=== PATIENT | male | born 1945 | race Caucasian/White ===

== ENCOUNTER 2017-10-26 14:47 | Emergency (ER) | payer MEDICARE, BC ==
[2017-10-26 15:13] VITALS: BP 103/65
--- NOTE | 2017-10-26 15:22 | UC ---
Skin Complaint HPI - HPI Summary HPI Summary: 72 yo male presents with tick bite to right upper thigh. He tells me that this morning he noticed a tick on the outside of his right thigh - was able to pull it off. Thinks he got it yesterday as he was outside a lot and didn't notice it there yesterday. Denies fever, chills, joint pain. - History of Current Complaint Chief Complaint: UCSkin Time Seen by Provider: 10/26/17 15:16 Stated Complaint: TICK BITE Hx Obtained From: Patient Onset/Duration: Sudden Onset Current Severity: None Pain Intensity: 0 - Allergy/Home Medications Allergies/Adverse Reactions: Allergies Allergy/AdvReac Type Severity Reaction Status Date / Time No Known Allergies Allergy Verified 10/26/17 15:13 Home Medications: Home Medications FLUoxetine CAP* [Prozac CAP*] 10 mg PO DAILY 10/26/17 [History Confirmed ] Review of Systems Constitutional: Negative Skin: Other - tick bite right thigh Respiratory: Negative Cardiovascular: Negative Neurovascular: Negative Neurological: Negative Psychological: Negative All Other Systems Reviewed And Are Negative: Yes PMH/Surg Hx/FS Hx/Imm Hx Psychological History: Anxiety - Surgical History Surgical History: Yes Surgery Procedure, Year, and Place: tonsilectomy - Family History Known Family History: Positive: None - Social History Occupation: Retired Lives: With Family Alcohol Use: Weekly Alcohol Amount: 3-4 drinks daily Substance Use Type: None Smoking Status (MU): Never Smoked Tobacco Have You Smoked in the Last Year: No Physical Exam - Summary Physical Exam Summary: GENERAL: NAD. WDWN. No pain distress. SKIN: Right lateral thigh: there is a 4mm diameter of mild erythema with central 1mm area of superficial skin loss. No streaking, bleeding, or drainage. NECK: Supple. Nontender. No lymphadenopathy. CHEST: No accessory muscle use. Breathing comfortably and in no distress. CV: RRR. Without m/r/g. NEURO: Alert. CN II-XII grossly intact. PSYCH: Age appropriate behavior. Triage Information Reviewed: Yes Vital Signs: Initial Vital Signs Temp 97.3 F 10/26/17 15:09 Pulse 75 10/26/17 15:09 Resp 20 10/26/17 15:09 BP 103/65 10/26/17 15:09 Pulse Ox 97 06/24/18 15:09 Course/Dx - Course Course Of Treatment: Has tick with him at visit and does not appear engorged. Tick bite on pt <24 hours - no treatment at this time. - Diagnoses Provider Diagnoses: Tick bite right thigh Discharge - Sign-Out/Discharge Documenting (check all that apply): Discharge/Admit/Transfer - Discharge Plan Condition: Stable Disposition: HOME Patient Education Materials: Lyme Disease (ED), Tick Bite (ED) Referrals: Timoteo Tobar MD [Primary Care Provider] - Additional Instructions: If you develop a fever, shortness of breath, chest pain, new or worsening symptoms - please call your PCP or go to the ED. You have been bitten by a tick. Once the tick is removed, these "bites" usually cause no problems. Tick fever, tick paralysis, Millry Spotted fever, and Lyme disease are uncommon -- but you should mention this tick bite to your doctor if you develop unusual symptoms in the next several weeks. If you develop any of the following, please see your physician promptly: (1) Fever, chills, or generalized malaise associated with a headache. (2) A red round area at the site of the bite (or elsewhere) (3) Joint pain, joint swelling or generalized weakness. (4) Redness, swelling, or drainage at the site of the bite. - Billing Disposition and Condition Condition: STABLE Disposition: Home
== END 2017-10-26 15:30 | disposition home or self-care (01) ==
LOC: UCEAST 14:47
DX: S70.361A Insect bite (nonvenomous), right thigh, initial encounter (principal); W57.XXXA Bitten or stung by nonvenomous insect and other nonvenomous arthropods, initial encounter; Y92.9 Unspecified place or not applicable
CPT/HCPCS: 99201; G0463

== ENCOUNTER 2019-01-06 12:24 | Emergency (ER) | payer MEDICARE, BC ==
--- OUTSIDE RECORDS SUMMARY | 2019-01-06 12:44 | XMS REPORT | Continuity of Care Document ---
:1945 External Reference #:[id number] Author Name Yoni Lopez M.D. Address [address] [place] [address] Care Team Providers Name Role Phone Amadou JOHNSON, Timoteo Fisher - Card Cutter Helper Care Team Information Administrative Technician [phone] Problems Active Problems Provider Date Nuclear senile cataract Yoni Lopez M.D. Onset: 05/27/2016 Bilateral age-related nonexudative macular Yoni Lopez M.D. Onset: 2016 degeneration Presbyopia Hunter Noriega O.D. Onset: 07/13/2013 Regular astigmatism Hunter Noriega O.D. Onset: 07/13/2013 Myopia Hunter Noriega O.D. Onset: 07/13/2013 Incipient senile cataract Hunter Noriega O.D. Onset: 07/13/2013 Nonexudative age-related macular degeneration Hunter Noriega O.D. Onset: 03/2014 Social History Type Date Description Comments Sex Unknown ETOH Use Occasionally consumes alcohol Tobacco Use Start: Unknown Patient has never smoked Smoking Status Reviewed: 01/01/19 Patient has never smoked Allergies, Adverse Reactions, Alerts Active Allergies Reaction Severity Comments Date NKDA 07/12/2013 Seasonal 07/13/2013 Medications Active Medications SIG Qnty Indications Ordering Provider Date Ocuvite Eye + Multi Unknown Tablets Alvesco Unknown 160mcg/Act Aerosol Immunizations Description No Information Available Vital Signs Date Vital Result Comment 07/02/2018 11:03am Intraocular Pressure Right Eye 18 mmHg Intraocular Pressure Left Eye 18 mmHg 06/02/2017 9:45am Intraocular Pressure Right Eye 17 mmHg Intraocular Pressure Left Eye 17 mmHg Results Description No Information Available Procedures Date Code Description Status 01/01/2019 91686 Oct Retina Completed 01/01/2019 99953 Eye Exam Est Intermediate Completed Medical Devices Description No Information Available Encounters Description No Information Available Assessments Date Code Description Provider 01/01/2019 H35.3132 Nonexudative age-related macular Yoni Lopez M.D. degeneration, bilateral, in Plan of Treatment 01/01/2019 - Yoni Lopez M.D.H35.3132 Nonexudative age-related macular degeneration, bilateral, inFollow up:6 mos full Functional Status Description No Information Available Mental Status Description No Information Available Referrals Description No Information Available
--- OUTSIDE RECORDS SUMMARY | 2019-01-06 12:44 | XMS REPORT | Continuity of Care Document ---
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 Problems Active Problems Provider Date Moderate persistent asthma Janeen Alcantar NP Onset: 05/22/2018 Chronic allergic conjunctivitis FAUSTINO Queen Onset: 2016 Allergic rhinitis FAUSTINO Queen Onset: 05/15/2016 Allergic rhinitis due to pollen FAUSTINO Queen Onset: 2016 Moderate persistent asthma Capo Alvares MD Onset: 04/10/2016 Social History Type Date Description Comments Sex Unknown Tobacco Use Start: Unknown Patient has never smoked Smoking Status Reviewed: 11/12/17 Patient has never smoked Allergies, Adverse Reactions, Alerts Description No Known Drug Allergies Medications Active Medications SIG Qnty Indications Ordering Provider Date Cetirizine HCL take one tablet by 30tabs J30.1 Janeen Alcantar NP 2016 mouth daily as 10mg Tablets needed. Alvesco 2 puffs twice a 12.2gm J45.40 Janeen Alcantar NP 06/19/2016 day. use with 160mcg/Act Aerosol spacer. rinse mouth after use. Aerochamber Plus Use aerochamber as 1units J45.40 Capo Streeter 2016 directed with bertha Alvares MD [facility] inhalers. Proair HFA 2 puffs every 4 as 8.500gm J45.40 Janeen Alcantar NP 04/10/2016 needed 108(90Base) mcg/Act Aerosol Fluoxetine HCL Unknown 20mg Capsules Flonase Allergy 2 puffs each 9.900ml Janeen Alcantar NP Relief nostril every day 50mcg/Act Suspension Immunizations Description No Information Available Vital Signs Date Vital Result Comment 01/06/2019 11:12am BP Systolic 127 mmHg BP Diastolic 65 mmHg Height 73 inches 6'1" Weight 180.00 lb BMI (Body Mass Index) 23.7 kg/m2 Heart Rate 56 /min Respiratory Rate 16 /min O2 % BldC Oximetry 98 % 05/22/2018 10:34am BP Systolic 126 mmHg BP Diastolic 62 mmHg Height 73 inches 6'1" Weight 181.00 lb BMI (Body Mass Index) 23.9 kg/m2 Heart Rate 79 /min Respiratory Rate 18 /min Body Temperature 97.2 F O2 % BldC Oximetry 94 % Results Description No Information Available Procedures Description No Information Available Medical Devices Description No Information Available Encounters Description No Information Available Assessments Description No Information Available Plan of Treatment No Information Available Functional Status Description No Information Available Mental Status Description No Information Available Referrals Description No Information Available
--- OUTSIDE RECORDS SUMMARY | 2019-01-06 12:44 | XMS REPORT | Continuity of Care Document ---
:1945 External Reference #:[id number] Author Name SANDY Hurt Address [address] [place] [address] Care Team Providers Name Role Phone Timoteo Tobar Family Medicine Care Team Information Network Diagnostic Support Specialist [phone] Problems Active Problems Provider Date Benign prostatic hypertrophy without outflow Timoteo Tobar M.D. Onset: obstruction FH: Diabetes mellitus Timoteo Tobar M.D. Onset: 01/27/2006 Arthropathy Timoteo Tobar M.D. Onset: 01/27/2006 Anxiety state Timoteo Tobar M.D. Onset: 01/27/2006 Dysthymia Timoteo Tobar M.D. Onset: 01/27/2006 Insomnia Timoteo Tobar M.D. Onset: 02/19/2007 Mild persistent asthma Timoteo Tobar M.D. Onset: 02/02/2018 Infection of external ear Timoteo Tobar M.D. Onset: 02/02/2018 Neuralgia Timoteo Tobar M.D. Onset: 07/29/2013 Sciatica Timoteo Tobar M.D. Onset: 07/29/2013 Bite of nonvenomous arthropod Timoteo Tobar M.D. Onset: 10/13/2012 Hyperlipidemia Timoteo Tobar M.D. Onset: 10/13/2012 Diarrhea Timoteo Tobar M.D. Onset: 05/12/2012 Eruption Timoteo Tobar M.D. Onset: 05/12/2012 Allergic rhinitis Timoteo Tobar M.D. Onset: 06/21/2010 Social History Type Date Description Comments Sex Unknown Tobacco Use Start: Unknown Nonsmoker Smoking Status Reviewed: 12/28/18 Nonsmoker ETOH Use Occasional Tobacco Use Start: Unknown Patient has never smoked Allergies, Adverse Reactions, Alerts Description No Known Drug Allergies Medications Active Medications SIG Qnty Indications Ordering Date Provider Alvesco 2 Puffs bid Timoteo Tobar, 02/02/2018 80mcg/Act M.D. Aerosol Ciprofloxacin HCL 4-5 drops affected 5units H62.43 Timoteo Tobar, 2017 0.3% ear every 12 hours M.D. Solution for the next 5 days in the left ear. Viagra take 1/2 to 1 6tabs Timoteo Tobar, 11/29/2008 50mg Tablets tablet by mouth 1 M.D. hour prior to intercourse Fluoxetine HCL take 1 to 2 120caps Timoteo Tobar, 11/25/2008 20mg capsules every M.D. Capsules morning Zovirax apply qid-5times 15gm Fabby 01/20/2004 5% Ointment per day Rigo Plascencia Imiquimod apply to warts on Unknown 5% Cream hand 3 times per week before bedtime, wash off in the morning Immunizations CPT Code Status Date Vaccine Lot # [id number] Given 02/02/2018 High-Dose, Influenza Virus Vacccine-fluzone 65 and [id number] older [id number] Given 06/26/2015 Tdap Tetanus, W Pertussis [id number] Given 06/26/2015 Pneumococcal Conjugate Vacc-13 [id number] 09333 Given 02/04/2014 Zostivax [id number] 83139 Given 02/19/2007 DO Not Use Split Influenza Virus Vaccine [id number] 72787 Given 02/26/2002 DO Not Use Split Influenza Virus Vaccine Vital Signs Date Vital Result Comment 12/28/2018 10:31am BP Systolic 128 mmHg BP Diastolic 70 mmHg Heart Rate 66 /min Body Temperature 97.3 F Height 71.75 inches 5'11.75" measured 06/26/15 Weight 180.00 lb BMI (Body Mass Index) 24.6 kg/m2 03/12/2018 1:58pm BP Systolic 120 mmHg BP Diastolic 70 mmHg Heart Rate 60 /min Body Temperature 98.4 F Height 71.75 inches 5'11.75" measured 06/26/15 Weight 186.00 lb BMI (Body Mass Index) 25.4 kg/m2 Results Description No Information Available Procedures Date Code Description Status 04/24/2014 61617519 Colonoscopy Completed 04/08/2014 51366430 Colonoscopy Completed 12/23/2008 07665237 Colonoscopy Completed Medical Devices Description No Information Available Encounters Description No Information Available Assessments Date Code Description Provider 12/28/2018 H60.312 Diffuse otitis externa, left ear SANDY Hurt 12/28/2018 H61.23 Impacted cerumen, bilateral SANDY Hurt Plan of Treatment Future Appointment(s):03/02/2019 12:00 pm - Timoteo Tobar M.D. at [facility]/28/2018 - Jeane Can, PAH60.312 Diffuse otitis externa, left earComments:Use rubbing alcohol in both ears today- saturate a cotton ball with rubbing alchol and let drip in to the ear canal to help dry out the ear canal. Start antibiotic ear drops in both ears 4 drops twice a day for the next 5 days. Call if symptoms worsen or don't improve or if you experience decrease in hearing, pain in the ears.H61.23 Impacted cerumen, bilateralComments:irrigated today. Call with reoccurence of symptoms.AllComments:PCMHMedication Management Patient Understands medications he's taking? Yes Are there Barriers to Adherence? No Has the patient been asked about herbal supplements and therapies, and OTC meds? Yes Care Plan1. Patient has been queried about patient's goals/preferences and functional/lifestyle goals at relevant visits. Yes If relevant, describe: N/A2. Treatment goals as explained to the patient: above3. Are there barriers to meeting treatment goals? No If Yes , please describe:4. Self-Management goals as described to the patient: Yes As always, we strongly encourage a healthy diet and making physical activity a part of your every day life. If you have questions about how or where to start, please contact the office. Functional Status Description No Information Available Mental Status Description No Information Available Referrals Description No Information Available
--- NOTE | 2019-01-06 13:10 | ED ---
Palpitations / Dysrhythmia - HPI Summary HPI Summary: The patient is a 73 y/o M presenting to [facility] with a chief complaint of dysrhythmia today while at an appointment with his electrostatic painter. He reports that he was getting a routine check-up for asthma when he started to fell unwell with chest tightness following a second nebulizer treatment. Following the tightness, he felt fast palpitations, which he notes he has been feeling throughout this past summer, but he believes it may be secondary to coffee drinking although he has also had episodes of the tightness radiating into the neck and jaw. He also notes that he can hear an inconsistent heartbeat. The GROUTER HELPER in the office at the electrostatic painter took the patients pulse and found that it was irregular. He denies any SOB, pain or swelling in the legs. He has not been on any recent long trips, and he doesnt have hx of blood clot. No previous stress test. PMHx: asthma (controlled with meds). Nonsmoker, weekly EtOH, no substance use. Medications reviewed. Allergies noted. - History of Current Complaint Chief Complaint: EDDysrhythmPalp Time Seen by Provider: 01/06/19 12:53 Hx Obtained From: Patient, Family/Senior Lead Project Manager - Onset/Duration: Sudden Onset, Still Present Severity Initially: Moderate Severity Currently: Moderate Character: Fast, Irregular Aggravating: Nothing Alleviating: Nothing - Allergy/Home Medications Allergies/Adverse Reactions: Allergies Allergy/AdvReac Type Severity Reaction Status Date / Time No Known Allergies Allergy Verified 10/26/17 15:13 Home Medications: Home Medications Acyclovir OINT 5%(NF) [Zovirax Oint 5%(NF)] 1 applic TOPICAL .4-5 TIMES DAILY [History Confirmed 01/06/19] Albuterol HFA INHALER* [Ventolin HFA Inhaler*] 1 - 2 puff INH Q4H PRN 01/06/19 [ History Confirmed 01/06/19] Cetirizine* [ZyrTEC 10 MG TAB*] 10 mg PO BEDTIME 01/06/19 [History Confirmed 08/21] Ciclesonide 80 MCG MDI (NF) [Alvesco 80 MDI (NF)] 2 puff INH BID 01/06/19 [ History Confirmed 01/06/19] Imiquimod 1 applic TOPICAL .3X/WEEK 01/06/19 [History Confirmed 01/06/19] PMH/Surg Hx/FS Hx/Imm Hx Endocrine/Hematology History: Denies: Hx Diabetes Cardiovascular History: Denies: Hx Hypertension, Hx Pacemaker/ICD, Other Cardiovascular Problems/ Disorders Respiratory History: Reports: Hx Asthma - CHECKING INTO THIS, Other Respiratory Problems/Disorders - 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, POSSIBLE DUST INHALATION Denies: Hx Chronic Obstructive Pulmonary Disease (COPD) Sensory History: Reports: Hx Contacts or Glasses Opthamlomology History: Reports: Hx Contacts or Glasses - Surgical History Surgical History: Yes Surgery Procedure, Year, and Place: tonsilectomy Infectious Disease History: No Infectious Disease History: Denies: Hx Clostridium Difficile, Hx Hepatitis, Hx Human Immunodeficiency Virus (HIV), Hx of Known/Suspected MRSA, Hx Shingles, Hx Tuberculosis, Hx Known/ Suspected VRE, Hx Known/Suspected VRSA, History Other Infectious Disease, Traveled Outside the [place] in Last 30 Days - Family History Known Family History: Negative: Cardiac Disease, Hypertension, Diabetes - Social History Alcohol Use: Weekly Alcohol Amount: 3-4 drinks daily Hx Substance Use: No Substance Use Type: Reports: None Hx Tobacco Use: No Smoking Status (MU): Never Smoked Tobacco Have You Smoked in the Last Year: No Review of Systems Positive: Palpitations, Other - chest tightness radiating as pressure into neck and jaw Negative: Shortness Of Breath Negative: Myalgia - in calves, Edema - in lower extremities All Other Systems Reviewed And Are Negative: Yes Physical Exam - Summary Physical Exam Summary: Constitutional: Well-developed, Well-nourished, Alert. (-) Distressed Skin: Warm, Dry HENT: Normocephalic; Atraumatic Eyes: Conjunctiva normal Neck: Musculoskeletal ROM normal neck. (-) JVD, (-) Stridor, (-) Tracheal deviation Cardio: Rhythm regular, rate normal, Heart sounds normal; Intact distal pulses; The pedal pulses are 2+ and symmetric. Radial pulses are 2+ and symmetric. (-) Murmur Pulmonary/Chest wall: Effort normal. (-) Respiratory distress, (-) Wheezes, (-) Rales Abd: Soft, (-) tenderness, (-) Distension, (-) Guarding, (-) Rebound Musculoskeletal: (-) Edema Lymph: (-) Cervical adenopathy Neuro: Alert, Oriented x3 Psych: Mood and affect Normal Triage Information Reviewed: Yes Vital Signs On Initial Exam: Initial Vitals Temp Pulse Resp BP Pulse Ox 97.8 F 71 20 157/68 98 01/06/19 12:35 01/06/19 12:35 01/06/19 12:35 01/06/19 12:35 01/06/19 12:35 Vital Signs Reviewed: Yes Diagnostics - Vital Signs Vital Signs Temp Pulse Resp BP Pulse Ox 01/06/19 12:35 97.8 F 71 20 157/68 98 - Laboratory Result Diagrams: 01/06/19 13:17 01/06/19 13:17 Lab Statement: Any lab studies that have been ordered have been reviewed, and results considered in the medical decision making process. - EKG 1228 Cardiac Rate: NL - 87 bpm EKG Rhythm: Sinus Rhythm Summary of EKG Findings: Multiple PVCs. No STEMI. Re-Evaluation - Re-Evaluation First Eval Re-Evaluation Time: 15:35 Comment: We discussed results and discharge plan. Course/Dx - Course Course Of Treatment: He was sent in from the electrostatic painter office to the [facility] P saw an arrhythmia on his EKG. Upon arrival here, patient had multiple PVCs but no other and rowdy. Patient had blood performed which is grossly unremarkable. Patient did state he isn't having worsening chest pain but has a hard score of 3. Patient had an outpatient stress test set up. Patient is given cardiology follow-up. Patient had no emergent need for admission. - Diagnoses Provider Diagnoses: Chest pain, Frequent PVCs Discharge ED - Sign-Out/Discharge Documenting (check all that apply): Patient Departure - Patietn will be discharged home. Patient Received Moderate/Deep Sedation with Procedure: No - Discharge Plan Condition: Stable Disposition: HOME Patient Education Materials: Chest Pain (ED) Referrals: Timoteo Tobar MD [Primary Care Provider] - 2 Days Additional Instructions: You will receive a call to schedule your outpatient stress test. Return to the emergency department for any new or worsening symptoms. - Billing Disposition and Condition Condition: STABLE Disposition: Home - Attestation Statements Document Initiated by Scribe: Yes Documenting Scribe: Cecilia Knight Provider For Whom Scribe is Documenting (Include Credential): Dr. Vinny Zurita MD Scribe Attestation: I, Cecilia Knight, scribed for Dr. Vinny Zurita MD on 01/08/19 at 1133. Scribe Documentation Reviewed: Yes Provider Attestation: The documentation as recorded by the scribe, Cecilia Knight accurately reflects the service I personally performed and the decisions made by me, Dr. Vinny Zurita MD Status of Scribe Document: Viewed
[2019-01-06 13:32] LABS: ABS Eosinophils 0.2 10^3/ul (0-0.6); ABS Lymphocytes 0.9 10^3/ul (1.0-4.8); ABS Monocytes 0.6 10^3/ul (0-0.8); ABS Neutrophils 3.9 10^3/ul (1.5-7.7); Eosinophil % 2.8 %; Hematocrit 40 % (42-52); Hemoglobin 13.6 g/dL (14.0-18.0); Lymphocyte % 16.6 %; Mean Corpuscular HGB Conc 34 g/dL (31-36); Mean Corpuscular Hemoglobin 29 pg (27-31); Mean Corpuscular Volume 85 fL (80-94); Mean Platelet Volume 8.4 fL (7.4-10.4); Platelet Count 172 10^3/uL (150-450); Red Blood Count 4.64 10^6 /uL (4.18-5.48); Red Cell Distribution Width 14 % (10-15); White Blood Count 5.6 10^3/uL (3.5-10.8)
[2019-01-06 13:41] LABS: INR 1.03 (0.82-1.09)
[2019-01-06 13:55] LABS: Magnesium 2.1 mg/dL (1.9-2.7)
[2019-01-06 13:56] LABS: Albumin/Globulin Ratio 1.6 (1-3); BUN/Creatinine Ratio 19.8 (8-20); Calcium 8.9 mg/dL (8.6-10.3); EGFR African American 78.8 (>60); EGFR Non-African American 65.1 (>60); Globulin 2.5 g/dL (2-4); Total Bilirubin 1.3 mg/dL (0.2-1.0); Total Protein 6.5 g/dL (6.4-8.9)
[2019-01-06 14:15] LABS: TSH (Thyroid Stimulating Horm) 1.14 mcIU/mL (0.34-5.60)
[2019-01-06 15:15] LABS: HDL Cholesterol 50.5 mg/dL
[2019-01-06 16:00] VITALS: BP 154/86
--- NOTE | 2019-01-06 17:25 | CONS ---
CC: Dr. Tobar CONSULTATION REPORT: DATE OF CONSULT: PRIMARY CARE PHYSICIAN: Dr. Tobar. PHYSICIAN REQUESTING CONSULTATION: Vinny Zurita MD REASON FOR CONSULTATION: Ordering outpatient stress test. CHIEF COMPLAINT: Extra beats heard on exam in first helper's office. HISTORY OF PRESENT ILLNESS: Mr. Ross is a 73-year-old male with a history of possible asthma, seasonal allergies, and anxiety who was in his first helper's office today having pulmonary function tests and possibly a methacholine challenge (he is unsure of this), but he reports that he did receive albuterol. Shortly after this pulmonary testing, he reports feeling no symptoms; however , someone listened to his heart and thought they heard extra beats, so they had sent him to the emergency room for further evaluation. In the emergency room, he was noted to have frequent PVCs on his first EKG, also with PVCs noted on telemetry. His EKG do not have ischemic changes and his troponin was negative. He had no other lab abnormalities. He also adamantly denied chest pain, shortness of breath, or palpitations. His electrolytes were within normal limits including a normal magnesium. Given the patient's age, he is at slightly increased risk for heart disease, so therefore Medicine was consulted to order an outpatient stress test. The patient has no other risk factors for coronary artery disease. The patient does report that months ago he did feel a chest tightness that radiated to his neck, that lasted for an entire day, was not worse with exertion or brought on by emotional stress. It resolved on its own. One of his hobbies is running, and he is able to run 4 miles without chest pain. Otherwise, he denies a history of chest pain. A complete 10- point review of systems was performed and was negative on exam today. PAST MEDICAL HISTORY: 1. Possible reactive airway disease. 2. Anxiety. 3. Allergic rhinitis. MEDICATIONS: 1. Ciclesonide inhaler. The patient has not used this in over a month. 2. Fluoxetine. 3. Cetirizine. ALLERGIES: No known drug allergies. FAMILY HISTORY: The patient's mother had a mitral valve prolapse. She at 87 from Alzheimer disease. His father at 93 from complications of dementia. SOCIAL HISTORY: The patient lives with his , Cari. 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 He denies a history of smoking or recreational drugs and he rarely uses alcohol. The patient is a runner and typically jogs approximately 4 miles on his runs. PHYSICAL EXAM: Afebrile, heart rate low 60s, blood pressure 126/78, respiratory rate 15, oxygen saturation 98% on room air. General: He is a well- appearing man, in no acute distress. He is alert and interactive. No increased work of breathing. HEENT: OP clear. Moist mucous membranes. Neck: Supple. No JVD. Lungs: Clear to auscultation bilaterally. Heart: Regular rate and rhythm. No murmurs, gallops, or rubs. No extra beats appreciated. Abdomen: Soft, nontender, nondistended. Back: No CVA tenderness. Extremities : Warm and well perfused. No evidence of edema. Neuro: A and O x3. No focal deficits. DIAGNOSTIC STUDIES/LAB DATA: Hemoglobin 13.6 with a normal MCV. BMP and coags unremarkable. Total bilirubin 1.3. Troponin 0. Triglycerides 203, LDL 145, HDL 50. TSH 1.14. EKG: First EKG with PVCs. Repeat EKG with normal sinus rhythm, rate 56. ASSESSMENT AND PLAN: Mr. Ross is a 73-year-old man with a history of anxiety, allergies, and possible reactive airway disease who presents from his first helper's office after pulmonary function testing when extra beats were noted on exam. The patient was found in emergency room with few PVCs that resolved throughout a few hours in the emergency room. The patient denied all cardiopulmonary symptoms, had a negative troponin and had no concerning ischemic changes on his EKG. His SUSIE score is 1 due to his age. The patient elects for an outpatient exercise stress test which should be forwarded to his PCP to continue to follow up his atherosclerotic cardiovascular disease risk calculation with his primary care physician. Him and his were educated on return precautions, which include but are not limited to chest pain, diaphoresis , or shortness of breath. Of note, the patient is at elevated ASCVD risk given his age and sex and he was educated to follow up with his PCP for shared decision making regarding initiation of statin and further monitoring. DISPOSITION: To home. CONDITION: Good. TIME SPENT: Approximately 60 was spent on consultation of this patient, more than half of which was spent at bedside for interview and exam. [id number]/[facility] #: [id number] MTDD
== END 2019-01-06 15:45 | disposition home or self-care (01) ==
LOC: ED 12:24
DX: R07.9 Chest pain, unspecified (principal); I49.3 Ventricular premature depolarization; Z79.899 Other long term (current) drug therapy; F41.9 Anxiety disorder, unspecified; J30.9 Allergic rhinitis, unspecified; R94.31 Abnormal electrocardiogram [ECG] [EKG]
CPT/HCPCS: 36415; 80053; 80061; 83036; 83735; 84443; 84484; 85025; 85610; 93005; 99283